=== PATIENT | female | born 1980 | race Two or more races ===

== ENCOUNTER 2024-03-22 00:51 | Emergency (ER) | payer MEDICAID, SELFPAY ==
[2024-03-22 00:52] VITALS: BMI 41.5
[2024-03-22 01:13] VITALS: BP 154/89; PULSE 77; RESP 16; TEMP 36.6; O2SAT 99
--- NOTE | 2024-03-22 01:22 | EDNOTE_ITS ---
ED Anxiety RME/HPI General Chief Complaint: Anxiety Stated Complaint: ANXIETY ATTACK Time Seen by Provider: 03/22/24 00:58 Source: patient and family () Arrival date/time: 03/22/24 00:51 43-year-old female with past medical history of pancreatitis and anxiety presents emergency department complaining of anxiety attack. Patient reports was at home and started feeling anxious and unable to sleep. Patient reports had similar episode before was given antianxiety medication and was able to go home. 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 Patient denies any fever, chills, nausea vomiting, diarrhea, cough, shortness of breath, chest pain, difficulty breathing, or any other associated symptom. Mode of arrival: ambulatory Limitations: no limitations Related Data Home Medications ?Medication ?Instructions ?Recorded ?Confirmed ondansetron 4 mg disintegrating 4 mg PO Q12H PRN Nausea 03/24/19 01/01/20 tablet oxycodone 5 mg tablet 2.5 mg PO Q12H PRN Pain 03/24/19 01/01/20 Previous Rx's ?Medication ?Instructions ?Recorded acetaminophen 500 mg capsule 1,000 mg (2 x 500 mg) PO Q8HR PRN 06/09/19 pain #60 caps ibuprofen 800 mg tablet 800 mg PO TID PRN pain #30 tabs 06/09/19 azithromycin 250 mg tablet See Rx Instructions PO .COMPLEX #6 01/02/20 tabs hydroxyzine HCl 50 mg tablet 50 mg PO TID PRN anxiety #20 tabs 03/22/24 Allergies Allergy/AdvReac Type Severity Reaction Status Date / Time omeprazole AdvReac Severe ANXIETY,SHA Verified 06/09/19 10:08 Review of Systems Review of Systems Systems Reviewed: All systems reviewed, normal except as documented Constitutional Constitutional: Reports system reviewed and no additional complaints, except as documented, Denies body ache(s), Denies chills, Denies fever(s) and Reports other (Anxiety) Eyes Eyes: Reports system reviewed and no additional complaints, except as documented and Denies change in vision ENT Ears, Nose, Mouth, and Throat: Reports system reviewed and no additional complaints, except as documented, Denies disequilibrium, Denies dizziness, Denies sore throat and Denies vertigo Cardiovascular Cardiovascular: Reports system reviewed and no additional complaints, except as documented, Denies chest pain and Denies dyspnea Respiratory Respiratory: Reports system reviewed and no additional complaints, except as documented, Denies chest congestion, Denies cough and Denies dyspnea Gastrointestinal Gastrointestinal: Reports system reviewed and no additional complaints, except as documented, Denies abdominal pain, Denies nausea and Denies vomiting Musculoskeletal Musculoskeletal: Reports system reviewed and no additional complaints, except as documented, Denies abnormal gait and Denies arthralgias Integumentary/Breasts Skin/Breast: Reports system reviewed and no additional complaints, except as documented, Denies erythema, Denies rash and Denies wounds Neurologic Neurologic: Reports system reviewed and no additional complaints, except as documented, Denies abnormal gait, Denies disequilibrium, Denies dizziness and Denies vertigo Past Medical History Past Medical History NEUROLOGIC: Positive Neurological Disorders and Migraine CARDIAC: Negative Cardiac Disorders or Congestive Heart Failure RESPIRATORY: Negative Chronic Obstructive Pulmonary Disease (COPD) or Asthma GASTROINTESTINAL: Positive Gastrointestinal Disorders, Pancreatitis and Gall Bladder Disease GENITOURINARY: Negative Renal Disease REPRODUCTIVE: Positive Previous Pregnancies ENDOCRINE: Negative Diabetes Mellitus Type 1 or Diabetes Mellitus Type 2 HEMATOLOGIC: Negative Sickle Cell Disease PSYCHO/SOCIAL: Positive Recreational Drug Use Surgical History SURGICAL: Positive Abdominal Surgery and Hysterectomy Social History SMOKING STATUS: Never smoker SUBSTANCE USE: does not use ED Exam General Limitations: Present no limitations General appearance: Present alert and in no apparent distress Head Head exam: Present atraumatic Eye Eye exam: Present normal appearance, PERRL and EOMI ENT ENT exam: Present normal exam, normal oropharynx and mucous membranes moist Neck Neck exam: Present normal inspection, full ROM and trachea midline Chest Chest inspection: Present normal inspection and symmetric chest wall rise Respiratory Respiratory exam: Present normal lung sounds bilaterally Cardiovascular Cardiovascular exam: Present regular rate, normal rhythm and normal heart sounds Abdominal Exam Abdominal exam: Present soft and normal bowel sounds Extremities Exam Extremities exam: Present normal inspection and full ROM Back Exam Back exam: Present normal inspection and full ROM Neurological Exam Neurological exam: Present alert, oriented X3 and CN II-XII intact Psychiatric Psychiatric exam: Present normal affect and anxious; Absent homicidal ideation or suicidal ideation Skin Skin exam: Present warm, dry, intact and normal color Course Quality Measures none Orders Category Date Time Status Bedside COVID-19 Antigen Test NOW Care 03/22/24 01:22 Active Bedside Influenza A&B Antigen Test NOW Care 03/22/24 01:22 Active Diazepam [Valium] Med 03/22/24 01:22 Once 5 mg PO X1 ONE Vital Signs Vital signs: Vital Signs Temperature 97.9 F 03/22/24 01:13 Pulse Rate 77 03/22/24 01:13 Respiratory Rate 16 03/22/24 01:13 Blood Pressure 154/89 H 03/22/24 01:13 Pulse Oximetry (%) 99 03/22/24 01:13 Oxygen Delivery Method Room Air 03/22/24 01:13 99% room air within normal limit Procedures -ED EKG Interpretation #1: Date of EK03/22/24 Time of EK:06 Rate: 71 Interpretation: Interpreted by me EKG Impression: Normal sinus rhythm, No acute ST-T changes, No ectopy, No ischemic changes and Normal QRS Anxiety MDM Narrative MDM Narrative: 43-year-old female with past medical history of pancreatitis and anxiety presents emergency department complaining of anxiety attack. Patient reports was at home and started feeling anxious and unable to sleep. Patient reports had similar episode before was given antianxiety medication and was able to go home. 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 Patient denies any fever, chills, nausea vomiting, diarrhea, cough, shortness of breath, chest pain, difficulty breathing, or any other associated symptom. Patient COVID and influenza swabs negative. Patient GCS of 15 with appropriate behavior and answering questions correctly. Patient reported significant improvement in symptoms after dose of Valium. Patient appears nontoxic and hemodynamically stable. EKG sinus rhythm. Patient discharged home and instructed patient and to follow-up with primary care provider in 24 to 48 hours and return to emergency department for any worsening symptoms or as needed. Patient data External records reviewed:: [facility] previous records Clinical information provided by:: patient and other (specify) () Social determinants that could affect healthcare access:: none Patient has the following chronic illnesses:: See chart How is presenting disease/condition affected by chronic disease/condition?: exacerbated by Evaluation data The following diagnostics were reviewed and interpreted by me:: EKG tracing(s) Lab and/or radiology exams considered but not ordered:: Ordered Interpretation Summary: Interpreted by me Medications / Prescriptions Medications or Prescriptions considered but not ordered:: Ordered Medication administrations:: Given Consultations Consultation(s) initiated? (list below): No Diagnosis Differential diagnosis anxiety: hyperventilation, panic disorder and acute anxiety Most likely diagnosis given after review of the tests above:: Anxiety Admission Indicated Admission indicated?: not indicated Admission Request Was there a request for admission?: No Disposition Plan Disposition Plan: Discharge Discharge Attestation Discharge Attestation: The patient and all family members were given an opportunity to ask questions and understood the discharge instructions. Discharge instructions specifically effects, indications for sooner follow up or return to the emergency department, and the expected course of current diagnosis. Patient condition: Stable Discharge Plan Plan Patient Disposition: HOME (Self Care) Disposition Comment: Stable Prescriptions/Referrals Prescriptions/Med Rec: New hydroxyzine HCl 50 mg tablet 50 mg PO TID PRN (Reason: anxiety) Qty: 20 0RF No Action azithromycin 250 mg tablet See Rx Instructions .ROUTE .COMPLEX Qty: 6 0RF Rx Instructions: take 500 mg today (day 1), then 250 mg for 4 days (days 2-5) ondansetron 4 mg Tablet,Disintegrating 4 mg PO Q12H PRN (Reason: Nausea) oxycodone 5 mg Tablet 2.5 mg PO Q12H PRN (Reason: Pain) Rx Instructions: pt takes half 5 mg tab po q12h prn. ibuprofen 800 mg tablet 800 mg PO TID PRN (Reason: pain) Qty: 30 0RF acetaminophen 500 mg capsule 1,000 mg PO Q8HR PRN (Reason: pain) Qty: 60 0RF Referrals: No Primary/Family,Physician [Primary Care Provider] - In 1 week Problem List Clinical Impression: Anxiety Patient/Caregiver Discharge Instructions Discharge Activity: activity as tolerated Education Materials: Your Body's Response to Anxiety, ED Anxiety Reaction Additional Instructions: Take medication as prescribed. Follow-up with primary care provider in 24 to 48 hours. Return to emergency department for any worsening symptoms or as needed. Print Language: Swedish Stand Alone Forms: Sarah Award Info., Patient Portal Info Letter PA/RAE Supervising Physician PA/RAE Supervising Physician: Dr. Dumont
--- NOTE | 2024-03-22 01:35 | EKG_ITS ---
[facility] Test Date: 2024-03-22 Pat Name: CHRISTI GODOY Department: Room: - Gender: Female Right Of Way Man: : 1980 Requested By: Emmett Valdez ([facility]) Order Number: [id number] Reading MD: Emmett Valdez ([facility]) Measurements Intervals [place] Rate: 68 P: 54 GA: 157 QRS: 18 QRSD: 99 T: 24 QT: 399 QTc: 427 Interpretive Statements SINUS RHYTHM LOW QRS VOLTAGE IN PRECORDIAL LEADS [QRS DEFLECTION < 1.0 mV IN CHEST LEADS] WARNING: DATA QUALITY MAY AFFECT INTERPRETATION No previous ECG available for comparison /store/[email or web address]/[id number]/ecg/[id number].pdf
[2024-03-22] MEDS: DIAZEPAM 5 MG TABLET PO (01:42)
== END 2024-03-22 02:38 | disposition home or self-care (01) ==
PROVIDERS: Emergency Provider Emergency Medicine
DX: F41.9 Anxiety disorder, unspecified (principal); R94.31 Abnormal electrocardiogram [ECG] [EKG]
CPT/HCPCS: 87400; 87811; 93005; 99283; A9270

== ENCOUNTER 2024-11-18 14:10 | Emergency (ER) | payer MEDICAID, SELFPAY ==
[2024-11-18 14:37] VITALS: BP 126/85; PULSE 70; RESP 17; TEMP 36.7; O2SAT 97; BMI 40.7
--- NOTE | 2024-11-18 14:39 | EDRME_ITS ---
Rapid Medical Screening Exam [facility] Arrival date/time: 11/18/24 14:10 43-year-old female with a history of chronic pancreatitis presents to the emergency room with a chief complaint of 10 out of 10 epigastric and left upper quadrant abdominal pain x 4 days. The patient also has nausea vomiting and diarrhea. I have greeted and performed a focused initial assessment of this patient. A comprehensive ED assessment and evaluation of the patient, analysis of all test results, and completion of the medical decision making process will be conducted by additional ED providers. Chief Complaint: Abdominal Pain Vital signs: Vital Signs Temperature 98.0 F 11/18/24 14:37 Pulse Rate 70 11/18/24 14:37 Respiratory Rate 17 11/18/24 14:37 Blood Pressure 126/85 H 11/18/24 14:37 Pulse Oximetry (%) 97 11/18/24 14:37 Oxygen Delivery Method Room Air 11/18/24 14:37 Vital signs reviewed by provider: Yes
--- NOTE | 2024-11-18 14:39 | XR_ITS ---
Examination: CT abdomen and pelvis without contrast. Coronal 3-D reconstructions. Sagittal 2-D reconstructions. Date and time of exam:November 18, 2024 1452 hours Comparison January 01, 2020 INDICATIONS: Left upper abdominal pain beginning 4 days ago, appendectomy cholecystectomy hysterectomy CTDI: vol (mGy): 12.9 DLP: (mGycm): 735 Technique: Axial images of the abdomen have been obtained, 3 mm slice thickness Intravenous contrast material has not been administered. Low dose protocols were performed. One or more of the following dose reduction techniques were used; automated exposure control, adjustment of the mA and/or KV according to patient size, use of iterative reconstruction technique. Findings: No focal liver or splenic lesions Absent gallbladder No pancreatic or adrenal mass No renal or ureteral calculi, no hydronephrosis Aorta normal size Absent appendix No bowel obstruction Intact urinary bladder Absent uterus No pelvic mass Intact osseous structures IMPRESSION: No acute process in the abdomen or pelvis
[2024-11-18 15:03] LABS: Basophils # (Auto) 0.1 Thou/mm3 (0.0-0.2); Basophils % (Auto) 1 % (0-2.5); Eosinophils # (Auto) 0.1 Thou/mm3 (0.0-0.5); Eosinophils % (Auto) 2 % (0-10); Hematocrit 39.6 % (36.0-46.0); Hemoglobin 14.0 g/dL (12.0-16.0); Immature Granulocytes Auto 0.02 Thou/mm3 (0.00-0.00); Lymphocytes # (Auto) 3.7 Thou/mm3 (1.0-4.8); Lymphocytes % (Auto) 43 % (10-50); Mean Corpuscular HGB Conc 35.4 g/dl (31.0-37.0); Mean Corpuscular Hemoglobin 30.0 pg (25.0-35.0); Mean Corpuscular Volume 85 fL (80-100); Monocytes # (Auto) 0.6 Thou/mm3 (0.0-0.8); Monocytes % (Auto) 6 % (0-12); Neutrophils # (Auto) 4.2 Thou/mm3 (1.8-7.7); Neutrophils % (Auto) 49 % (37-80); Nucleated Red Blood Cell # 0.00 Thou/mm3 (0.00-0.00); Nucleated Red Blood Cell % 0 /100 WBC (0); Platelet Count 322 Thou/mm3 (140-440); RDW Standard Deviation 40.3 fL (36.4-46.3); Red Blood Count 4.66 Miln/mm3 (4.00-5.20); White Blood Count 8.7 Thou/mm3 (3.6-11.0)
[2024-11-18 15:23] LABS: Alanine Aminotransferase 15 U/L (10-49); Albumin, Serum 4.4 gm/dL (3.5-5.0); Albumin/Globulin Ratio 1.4 (1.2-2.2); Alkaline Phosphatase 100 U/L (46-116); Anion Gap 9 (7-16); Aspartate Amino Transferase 20 U/L (0-34); BUN/Creatinine Ratio 7 Ratio (12-20); Bilirubin,Total 0.8 mg/dL (0.3-1.2); Blood Urea Nitrogen < 5 mg/dL (9-23); Calcium 9.5 mg/dL (8.3-10.6); Calcium (Corrected) 9.5 mg/dL (8.5-10.1); Carbon Dioxide 26.5 mMol/L (20.0-31.0); Chloride 106 mMol/L (98-107); Creatinine (Component) 0.7 mg/dL (0.6-1.3); Estimated Creatinine Clearance 117.2 mL/min (>60); Globulin 3.1 gm/dL (2.3-3.5); Glucose 95 mg/dL (74-106); Lipase 22 U/L (12-53); Osmolality,Calculated 278 (275-295); Potassium 3.9 mMol/L (3.4-5.1); Sodium 141 mMol/L (136-145); Total Protein 7.5 gm/dL (5.7-8.2); eGFR > 60 See Note
[2024-11-18 15:59] VITALS: BP 127/70; PULSE 74; RESP 16; TEMP 36.8; O2SAT 96
[2024-11-18 16:00] VITALS: BP 134/85; PULSE 70; RESP 18; TEMP 36.9; O2SAT 97
--- NOTE | 2024-11-18 16:33 | EDNOTE_ITS ---
ED Abdominal Pain RME/HPI General Chief Complaint: Abdominal Pain Stated complaint: Left upper abdominal pain X 4 days Time seen by provider: 11/18/24 14:41 Arrival date/time: 11/18/24 14:10 Limitations: no limitations RME / HPI RME / HPI narrative: 11/18/24 14:10 43-year-old female with a history of chronic pancreatitis presents to the emergency room with a chief complaint of 10 out of 10 epigastric and left upper quadrant abdominal pain x 4 days. The patient also has nausea vomiting and diarrhea. I have greeted and performed a focused initial assessment of this patient. A comprehensive ED assessment and evaluation of the patient, analysis of all test results, and completion of the medical decision making process will be conducted by additional ED providers. DR. HODGES MAIN ED EVALUATION: 43 year old female with past medical history significant for pancreatitis presents to the Emergency Department with complaint of severe, constant abdominal pain that began on Thursday, 4 days ago. She reports the pain has persisted despite using a pain patch and taking pain medication, both of which have not provided relief. She denies associated symptoms such as nausea, vomiting, diarrhea, constipation, or fever. No recent illness or trauma. Related Data Home Medications ?Medication ?Instructions ?Recorded ?Confirmed ondansetron 4 mg disintegrating 4 mg PO Q12H PRN Nause a 03/24/19 01/01/20 tablet oxycodone 5 mg tablet 2.5 mg PO Q12H PRN Pain 03/0501/01/20 Previous Rx's ?Medication ?Instructions ?Recorded acetaminophen 500 mg capsule 1,000 mg (2 x 500 mg) PO Q8HR PRN 06/09/19 pain #60 caps ibuprofen 800 mg tablet 800 mg PO TID PRN pain #30 t abs 06/09/19 azithromycin 250 mg tablet See Rx Instructions PO .COM PLEX #6 01/02/20 tabs hydroxyzine HCl 50 mg tablet 50 mg PO TID PRN anxiety #20 tabs 03/22/24 Allergies Allergy/AdvReac Type Severity Reaction Status Date / Time omeprazole AdvReac Severe ANXIETY,SHA Verified 11/18/24 14:16 Review of Systems Review of Systems Systems Reviewed: All systems reviewed, normal except as documented Past Medical History Past Medical History NEUROLOGIC: Positive Neurological Disorders and Migraine GASTROINTESTINAL: Positive Gastrointestinal Disorders, Pancreatitis and Gall Bladder Disease REPRODUCTIVE: Positive Previous Pregnancies PSYCHO/SOCIAL: Positive Recreational Drug Use Family History FAMILY HISTORY: Positive Family Cardiac Disorders and Family Cancer (PT'S SISTER BREAST CANCER, PT'S GRANDPA STOMACH CANCER & BRAIN TUMOR) Surgical History SURGICAL: Positive Abdominal Surgery (ABDOMINAL STENT) and Hysterectomy Social History SMOKING STATUS: Never smoker SUBSTANCE USE: does not use ALCOHOL: Never ED Exam General Limitations: Present no limitations General appearance: Present alert, in no apparent distress and obese Head Head exam: Present atraumatic, normocephalic and normal inspection Eye Eye exam: Present normal appearance, PERRL and EOMI ENT ENT exam: Present normal exam, normal oropharynx and mucous membranes moist Neck Neck exam: Present normal inspection, full ROM and trachea midline Chest Chest inspection: Present normal inspection and symmetric chest wall rise Respiratory Respiratory exam: Present normal lung sounds bilaterally Cardiovascular Cardiovascular exam: Present regular rate, normal rhythm and normal heart sounds Abdominal Exam Abdominal exam: Present soft and normal bowel sounds; Absent tenderness Extremities Exam Extremities exam: Present normal inspection and full ROM Back Exam Back exam: Present normal inspection and full ROM Neurological Exam Neurological exam: Present alert, oriented X3 and CN II-XII intact Psychiatric Psychiatric exam: Present normal affect and normal mood Skin Skin exam: Present warm, dry, intact and normal color Course Quality Measures none Orders Category Date Time Status CT abdomen pelvis wo con Stat Exams 11/18/24 14:39 Completed CBC Stat Lab 11/18/24 14:57 Completed CMP [Comprehensive Metabolic Panel] Stat Lab 11/18/24 14:57 Completed HCG Qualitative,Urine Stat Lab 11/18/24 14:39 Ordered Lipase Stat Lab 11/18/24 14:57 Completed UA [Urinalysis] Stat Lab 11/18/24 14:39 Ordered Urine Culture Stat Lab 11/18/24 14:39 Ordered Vital Signs Vital signs: Vital Signs Temperature 98.0 F 11/18/24 14:37 Pulse Rate 70 11/18/24 14:37 Respiratory Rate 17 11/18/24 14:37 Blood Pressure 126/85 H 11/18/24 14:37 Pulse Oximetry (%) 97 11/18/24 14:37 Oxygen Delivery Method Room Air 11/18/24 14:37 Abdominal Pain MDM MDM Narrative MDM Narrative:: I, Batsheva Flores, am scribing for and in the presence of Dr. Hodges. Labs are normal. Abdomen/ pelvis CT normal, no pancreatitis. Plan to discharge for abdominal pain. Patient data External records reviewed:: [facility] previous records Clinical information provided by:: patient and spouse Social determinants that could affect healthcare access:: none Patient has the following chronic illnesses:: pancreatitis How is presenting disease/condition affected by chronic disease/condition?: exacerbated by Evaluation data The following diagnostics were reviewed and interpreted by me:: lab results and radiology exam(s) Lab and/or radiology exams considered but not ordered:: none Interpretation Summary: Procedure(s): CT abdomen pelvis wo con Accession Number(s): [id number] cc: Barrett Calderon; Neymar Hoover PA-C; Patric Valdez MD~ Examination: CT abdomen and pelvis without contrast. Coronal 3-D reconstructions. Sagittal 2-D reconstructions. Date and time of exam:November 18, 2024 1452 hours Comparison January 01, 2020 INDICATIONS: Left upper abdominal pain beginning 4 days ago, appendectomy cholecystectomy hysterectomy CTDI: vol (mGy): 12.9 DLP: (mGycm): 735 Technique: Axial images of the abdomen have been obtained, 3 mm slice thickness Intravenous contrast material has not been administered. Low dose protocols were performed. One or more of the following dose reduction techniques were used; automated exposure control, adjustment of the mA and/or KV according to patient size, use of iterative reconstruction technique. Findings: No focal liver or splenic lesions Absent gallbladder No pancreatic or adrenal mass No renal or ureteral calculi, no hydronephrosis Aorta normal size Absent appendix No bowel obstruction Intact urinary bladder Absent uterus No pelvic mass Intact osseous structures IMPRESSION: No acute process in the abdomen or pelvis Dictated By: Patric Valdez MD Medications / Prescriptions Medications or Prescriptions considered but not ordered:: none Medication administrations:: none Consultations Consultation(s) initiated? (list below): No Diagnosis Differential diagnosis abdominal pain: other (Recurrent pancreatitis, biliary colic, and gastritis.) Most likely diagnosis given after review of the tests above:: Abdominal pain Admission Indicated Admission indicated?: not indicated Admission Request Was there a request for admission?: No Disposition Plan Disposition Plan: Discharge Discharge Attestation Discharge Attestation: The patient and all family members were given an opportunity to ask questions and understood the discharge instructions. Discharge instructions specifically effects, indications for sooner follow up or return to the emergency department, and the expected course of current diagnosis. Patient condition: Stable Discharge Plan Plan Patient Disposition: HOME (Self Care) Patient condition on transfer: Stable Prescriptions/Referrals Prescriptions/Med Rec: No Action azithromycin 250 mg tablet See Rx Instructions .ROUTE .COMPLEX Qty: 6 0RF Rx Instructions: take 500 mg today (day 1), then 250 mg for 4 days (days 2-5) ondansetron 4 mg Tablet,Disintegrating 4 mg PO Q12H PRN (Reason: Nausea) oxycodone 5 mg Tablet 2.5 mg PO Q12H PRN (Reason: Pain) Rx Instructions: pt takes half 5 mg tab po q12h prn. ibuprofen 800 mg tablet 800 mg PO TID PRN (Reason: pain) Qty: 30 0RF acetaminophen 500 mg capsule 1,000 mg PO Q8HR PRN (Reason: pain) Qty: 60 0RF hydroxyzine HCl 50 mg tablet 50 mg PO TID PRN (Reason: anxiety) Qty: 20 0RF Referrals: Neymar Hoover, PAMaribelC [Primary Care Provider] - In 1 week Problem List Clinical Impression: Abdominal pain Patient/Caregiver Discharge Instructions Education Materials: Abdominal Pain Additional Instructions: Please follow-up with your primary care physician within 2-3 days. Return to the Emergency Department as needed. Print Language: Kinyarwanda Stand Alone Forms: Sarah Award Info., Patient Portal Info Letter
[2024-11-18 17:24] VITALS: BP 131/72; PULSE 60; RESP 19; TEMP 36.5; O2SAT 98
== END 2024-11-18 17:38 | disposition home or self-care (01) ==
PROVIDERS: Nurse Practitioner Family; Emergency Provider Family Medicine; PCP Physician Assistant
DX: R10.12 Left upper quadrant pain (principal)
CPT/HCPCS: 36415; 74176; 80053; 81001; 81025; 83690; 85025; 87086; 99283